=== PATIENT | male | born 1990 | race Caucasian/White ===

== ENCOUNTER 2020-12-22 12:09 | Outpatient (CLI) | payer SELFPAY ==
--- NOTE | 2020-12-22 12:30 | DI.RAD_ITS ---
Exam(s) XR FINGER LT MIDDLE EXAM: XR FINGER LT MIDDLE EXAM DATE/TIME: CLINICAL HISTORY: FINGER PAIN , LEFT. TECHNIQUE: 2D digital imaging was performed of the left finger. Three views were obtained. PA/AP, oblique, and lateral views were obtained. COMPARISON: None. FINDINGS: BONES: There is a small nondisplaced avulsed fracture of the ulnar aspect of the terminal tuft of the left middle finger. No bony destructive lesion is seen. JOINTS: No dislocation is present. SOFT TISSUE: Soft tissue swelling of the distal finger. No radiopaque foreign body. IMPRESSION: Nondisplaced fracture of the terminal tuft of the left middle finger. DATA REPOSITORY: RADIATION DOSE DELIVERED:
--- NOTE | 2020-12-22 13:05 | DI.VRAD_ITS ---
PROCEDURE INFORMATION: Exam: XR Left Finger(s) Exam date and time: 12/22/2020 12:25 PM Age: 30 years old Clinical indication: Injury or trauma; Other: Crushing injury; Blunt trauma (contusions or hematomas); Left; Middle finger TECHNIQUE: Imaging protocol: XR Left fingers. Views: Minimum 2 views. COMPARISON: No relevant prior studies available. FINDINGS: Bones/joints: There is a small avulsion fracture at the tip of the terminal tuft of the 3rd digit. Soft tissues: There is soft tissue swelling and laceration. IMPRESSION: Minimal terminal tuft fracture . Dictated and Authenticated by: Cruz Ackerman MD. Ordering:JOEL Calero MD
== END 2020-12-22 12:29 ==
PROVIDERS: Visit Provider Physician Assistant Medical
DX: M79.645 Pain in left finger(s) (principal); S62.623A Displaced fracture of middle phalanx of left middle finger, initial encounter for closed fracture
CPT/HCPCS: 73140